=== PATIENT | male | born 1965 | race Caucasian/White ===

== ENCOUNTER 2016-07-22 08:32 | Emergency (ER) | payer BC, SELFPAY ==
--- NOTE | 2016-07-22 09:57 | REP ---
LEFT OS CALCIS, TWO VIEWS: HISTORY: Fall. There is a defect in the inferior cortex of the calcaneus consistent with a fracture. There is no dislocation. The joint spaces are normal in appearance. IMPRESSION: Fracture of the inferior calcaneus. Signed by Bahman Cruz MD 07/22/2016 09:59 A
--- NOTE | 2016-07-22 10:12 | REP ---
LEFT FOOT SERIES: FOUR VIEWS. HISTORY: Trauma. FINDINGS: Four views of the left foot show a nondisplaced fracture through the calcaneus best seen on oblique radiograph. Bohler angle is not flattened. No other fracture is seen. Overall mineralization pattern is normal. IMPRESSION: Nondisplaced fracture of the posterior and plantar aspect of the left calcaneus. Signed by Galileo Jose MD 07/22/2016 03:02 P
--- NOTE | 2016-07-22 10:23 | EDDOCDS ---
Nurse's Notes [facility] Name: Taras Carlson Age: 51 yrs Sex: Male : 1965 Arrival Date: 07/22/2016 Time: 08:32 Bed PD Private MD: Diagnosis: Nondisplaced fracture of body of left calcaneus;Low back pain Presentation: 07/22 08:56 Presenting complaint: Patient states: "Ladder kicked out and I landed on my heel" mlb1 reports falling 10 feet onto left heel last night. Adult Sepsis Screening: The patient does not have new or worsening altered mentation. Patient's respiratory rate is less than 22. Systolic blood pressure is greater than 100. Patient has a qSOFA score of 0- Negative Sepsis Screen. Suicide/Homicide risk assessment- the patient denies having any suicidal and/or homicidal ideations and does not present with any other emotional, behavioral or mental health complaints. Status: Patient is not a client service professional or dependent. Transition of care: patient was not received from another setting of care. 08:56 Acuity: KARMEN Level 4 mlb1 08:56 Method Of Arrival: Walkin/Carried/Asstd mlb1 Triage Assessment: 08:58 General: Appears in no apparent distress, Behavior is appropriate for age, cooperative. mlb1 Pain: Location: heel of left foot Pain currently is 5 out of 10 on a pain scale. At worst was 10 out of 10 on a pain scale. Aggravated by weight bearing. Pt Declines HIV testing. Historical: - Allergies: no known allergies; - Home Meds: 1. Synthroid 150 mcg Oral tab 1 tab once daily - PMHx: Hypothyroidism; - PSHx: Tonsillectomy; Hernia repair; - Social history: Smoking status: Patient states was never smoker of tobacco. No barriers to communication noted, The patient speaks fluent Kinyarwanda, Speaks appropriately for age. - Family history: Not pertinent. - : The pt / caregiver states he / she is not on anticoagulants. Home medication list is obtained from the patient. - Exposure Risk Screening:: None identified. Screenin:07 Screening information is obtained from the patient. Fall risk: No risks identified. mlb1 Assistance ADL's: requires no assistance with activities of daily living. Abuse/DV Screen: The patient / caregiver reports he/she is: not in a situation that causes fear, pain or injury. Nutritional screening: No deficits noted. Advance Directives: Currently, there is no health care proxy. home support is adequate. Assessment: 10:06 General: Appears in no apparent distress, Behavior is agitated. Pain: Location: heel of mlb1 left foot Pain currently is 5 out of 10 on a pain scale. Injury Description: Bruise sustained to arch of left foot is purple. 10:07 General: Pt refused back x-ray, reported back pain to provider none reported to this b1 commercial loan underwriter. Vital Signs: 08:58 BP 120 / 59; Pulse 60; Resp 16; Temp 98.9(TE); Pulse Ox 98% on R/A; Weight 79.38 kg mlb1 (R); Height 6 ft. 0 in. (182.88 cm) (R); Pain 5/10; 08:58 Body Mass Index 23.73 (79.38 kg, 182.88 cm) mlb1 Vitals: 08:58 Log In Time: July 22, 2016 at 08:30. mlb1 ED Course: 08:33 Patient visited by Rodney Jara. mm15 08:33 Patient moved to Waiting mm15 08:56 Patient visited by Mahesh Roque, LINDEN. mlb1 08:57 Triage Initiated mlb1 08:59 Patient visited by aMhesh Roque RN. mlb1 08:59 Patient moved to PD2 / mlb1 09:03 Mannie Guaman PA-C is [facility]. ar2 09:03 Jreamy Law MD is Attending Physician. ar2 09:08 Patient visited by Mannie Guaman PA-C. ar2 10:04 Germán Messina is Referral Physician. ar2 10:08 The patient / caregiver is instructed regarding the plan of care and ED course. mlb1 10:08 No IV's were initiated during this patient's visit. No procedures done that require mlb1 assistance. 10:16 [facility] [place] was scanned into [email or web address] and attached to record. mm15 10:23 Patient visited by Mahesh Roque, LINDEN. mlb1 Order Results: There are currently no results for this order. Outcome: 10:05 Patient left against medical advice. ar2 10:18 Discharge Assessment: Patient awake, alert and oriented x 3. No cognitive and/or mlb1 functional deficits noted. Patient verbalized understanding of disposition instructions. patient administered narcotics - no. Condition: good. Discharge instructions given to patient, Instructed on discharge instructions, follow up and referral plans. Demonstrated understanding of instructions, Pt was receptive of discharge instructions/ teaching. No special radiology studies were completed. Property sent home with patient. 10:19 The following High Risk Discharge criteria are identified: Yes, Pt leaving AMA for mlb1 refusing back x-ray, reported back pain to provider, appointment with Ortho Dr. Messina immediately after departure. The patient is leaving AMA: AMA form signed, Notification of AMA status is made to the charge nurse, the ED attending physician. 10:23 Patient left the ED. [facility] Signatures: Mahesh Roque RN RN b1 Mannie Guaman PA-C PA-C ar2 Rodney Jara mm15 Corrections: (The following items were deleted from the chart) 10:23 10:18 The following High Risk Discharge criteria are identified: None. Discharged to [facility] home ambulatory, with crutches, [facility] 10:23 10:18 Discharge instructions given to patient, Instructed on discharge instructions, b1 follow up and referral plans. Demonstrated understanding of instructions, Pt was receptive of discharge instructions/ teaching. mlb1 MTDD
--- NOTE | 2016-07-22 10:23 | EDDOCDS ---
Physician Documentation [facility] Name: Taras Carlson Age: 51 yrs Sex: Male : 1965 Arrival Date: 07/22/2016 Time: 08:32 Bed PD Private MD: Disposition: 07/22/16 10:05 Patient has left against medical advice. Impression: Nondisplaced fracture of body of left calcaneus, Low back pain. - Patients states they are going to Home/Self Care. - Condition is Unknown. - Discharge Instructions: Calcaneal Fracture Repair, Crutch Use. Medication Reconciliation, Local Pharmacy Hours form. Follow up: Germán Messina; When: go directly to office; Reason: Recheck today's complaints, Continuance of care. - Problem is new. - Symptoms are unchanged. - Notes: Your case was discussed with Dr. Messina. Use crutches, no weight bearing on left foot. Go directly to his office from the ER for further evaluation. Please understand you may also have a fracture in your spine for which you refused an xray today. Historical: - Allergies: no known allergies; - Home Meds: 1. Synthroid 150 mcg Oral tab 1 tab once daily - PMHx: Hypothyroidism; - PSHx: Tonsillectomy; Hernia repair; - Social history: Smoking status: Patient states was never smoker of tobacco. No barriers to communication noted, The patient speaks fluent Fijian, Speaks appropriately for age. - Family history: Not pertinent. - : The pt / caregiver states he / she is not on anticoagulants. Home medication list is obtained from the patient. - Exposure Risk Screening:: None identified. Vital Signs: 07/22 08:58 BP 120 / 59; Pulse 60; Resp 16; Temp 98.9(TE); Pulse Ox 98% on R/A; Weight 79.38 kg / mlb1 175 lbs (R); Height 6 ft. 0 in. (182.88 cm) (R); Pain 5/10; 08:58 Body Mass Index 23.73 (79.38 kg, 182.88 cm) mlb1 MDM: 09:16 Foot, Complete Ordered. EDMS 09:16 Calcaneus Ordered. EDMS 09:16 Spine. Lumbosacral, Complete Ordered. EDMS 09:16 NOTHING BY MOUTH+DIET ordered. EDMS 09:37 Financial registration complete. mm15 10:16 [facility] Payment Agreement was scanned into [employer] and attached to record. mm15 Signatures: Dispatcher [employer] Mahesh Davison RN RN mlb1 Mannie Guaman PA-C PA-C ar2 Rodney Jara mm15 The chart was reviewed and I authenticate all verbal orders and agree with the evaluation and treatment provided.Attachments: 10:16 [facility] Payment Agreement mm15 MTDD
--- NOTE | 2016-07-24 11:24 | EDDOCDS ---
Nurse's Notes [facility] Name: Taras Carlson Age: 51 yrs Sex: Male : 1965 Arrival Date: 07/22/2016 Time: 08:32 Bed PD Private MD: Diagnosis: Nondisplaced fracture of body of left calcaneus;Low back pain Presentation: 07/22 08:56 Presenting complaint: Patient states: "Ladder kicked out and I landed on my heel" mlb1 reports falling 10 feet onto left heel last night. Adult Sepsis Screening: The patient does not have new or worsening altered mentation. Patient's respiratory rate is less than 22. Systolic blood pressure is greater than 100. Patient has a qSOFA score of 0- Negative Sepsis Screen. Suicide/Homicide risk assessment- the patient denies having any suicidal and/or homicidal ideations and does not present with any other emotional, behavioral or mental health complaints. Status: Patient is not a fiscal services director or dependent. Transition of care: patient was not received from another setting of care. 08:56 Acuity: KARMEN Level 4 mlb1 08:56 Method Of Arrival: Walkin/Carried/Asstd mlb1 Triage Assessment: 08:58 General: Appears in no apparent distress, Behavior is appropriate for age, cooperative. mlb1 Pain: Location: heel of left foot Pain currently is 5 out of 10 on a pain scale. At worst was 10 out of 10 on a pain scale. Aggravated by weight bearing. Pt Declines HIV testing. Historical: - Allergies: no known allergies; - Home Meds: 1. Synthroid 150 mcg Oral tab 1 tab once daily - PMHx: Hypothyroidism; - PSHx: Tonsillectomy; Hernia repair; - Social history: Smoking status: Patient states was never smoker of tobacco. No barriers to communication noted, The patient speaks fluent Kyrgyz, Speaks appropriately for age. - Family history: Not pertinent. - : The pt / caregiver states he / she is not on anticoagulants. Home medication list is obtained from the patient. - Exposure Risk Screening:: None identified. Screenin:07 Screening information is obtained from the patient. Fall risk: No risks identified. mlb1 Assistance ADL's: requires no assistance with activities of daily living. Abuse/DV Screen: The patient / caregiver reports he/she is: not in a situation that causes fear, pain or injury. Nutritional screening: No deficits noted. Advance Directives: Currently, there is no health care proxy. home support is adequate. Assessment: 10:06 General: Appears in no apparent distress, Behavior is agitated. Pain: Location: heel of mlb1 left foot Pain currently is 5 out of 10 on a pain scale. Injury Description: Bruise sustained to arch of left foot is purple. 10:07 General: Pt refused back x-ray, reported back pain to provider none reported to this [facility] abstract writer. Vital Signs: 08:58 BP 120 / 59; Pulse 60; Resp 16; Temp 98.9(TE); Pulse Ox 98% on R/A; Weight 79.38 kg mlb1 (R); Height 6 ft. 0 in. (182.88 cm) (R); Pain 5/10; 08:58 Body Mass Index 23.73 (79.38 kg, 182.88 cm) mlb1 Vitals: 08:58 Log In Time: July 22, 2016 at 08:30. mlb1 ED Course: 08:33 Patient visited by Rodney Jara. mm15 08:33 Patient moved to Waiting mm15 08:56 Patient visited by Mahesh Roque, LINDEN. mlb1 08:57 Triage Initiated mlb1 08:59 Patient visited by Mahesh Roque RN. mlb1 08:59 Patient moved to PD2 / mlb1 09:03 Mannie Guaman PA-C is PHCP. ar2 09:03 Jeramy Law MD is Attending Physician. ar2 09:08 Patient visited by Mannie Guaman PA-C. ar2 10:04 Germán Messina is Referral Physician. ar2 10:08 The patient / caregiver is instructed regarding the plan of care and ED course. mlb1 10:08 No IV's were initiated during this patient's visit. No procedures done that require mlb1 assistance. 10:16 [facility] Agreement was scanned into [employer] and attached to record. mm15 10:23 Patient visited by Mahesh Roque, LINDEN. mlb1 10:34 Calcaneus Returned. EDMS 10:34 Foot, Complete Returned. EDMS 07/23 10:10 Refusal of Services was scanned into [employer] and attached to record. gb 10:10 T-Sheet-- Draft Copy was scanned into [employer] and attached to record. gb 10:10 Radiology Report was scanned into [employer] and attached to record. gb Attachments: 07/23 10:10 Refusal of Services gb Order Results: Radiology Order: Foot, Complete Test: Foot, Complete REASON FOR EXAMINATION: trauma, fall from ladder; LEFT FOOT SERIES: FOUR VIEWS.; ; HISTORY: Trauma.; ; FINDINGS: Four views of the left foot show a nondisplaced fracture through the; calcaneus best seen on oblique radiograph. Bohler angle is not flattened. No; other fracture is seen. Overall mineralization pattern is normal.; ; IMPRESSION:; ; Nondisplaced fracture of the posterior and plantar aspect of the left calcaneus.; ; ; Signed by; Galileo Jose MD 07/22/2016 03:02 P; Radiology Order: Calcaneus Test: Calcaneus REASON FOR EXAMINATION: fall from ladder; LEFT OS CALCIS, TWO VIEWS:; ; HISTORY: Fall.; ; There is a defect in the inferior cortex of the calcaneus consistent with a; fracture. There is no dislocation. The joint spaces are normal in appearance.; ; ; IMPRESSION:; ; Fracture of the inferior calcaneus.; ; ; Signed by; Bahman Cruz MD 07/22/2016 09:59 A; Outcome: 07/22 10:05 Patient left against medical advice. ar2 10:18 Discharge Assessment: Patient awake, alert and oriented x 3. No cognitive and/or mlb1 functional deficits noted. Patient verbalized understanding of disposition instructions. patient administered narcotics - no. Condition: good. Discharge instructions given to patient, Instructed on discharge instructions, follow up and referral plans. Demonstrated understanding of instructions, Pt was receptive of discharge instructions/ teaching. No special radiology studies were completed. Property sent home with patient. 10:19 The following High Risk Discharge criteria are identified: Yes, Pt leaving AMA for mlb1 refusing back x-ray, reported back pain to provider, appointment with Ortho Dr. Messina immediately after departure. The patient is leaving AMA: AMA form signed, Notification of AMA status is made to the charge nurse, the ED attending physician. 10:23 Patient left the ED. mlb1 Signatures: Dispatcher [employer] EDMI Adelaide Bynum, Reg Reg gb Mahesh Roque RN RN mlb1 Mannie Guaman PA-C PAMeena ar2 Rodney Jara mm15 Corrections: (The following items were deleted from the chart) 10:23 10:18 The following High Risk Discharge criteria are identified: None. Discharged to [facility] home ambulatory, with crutches, [facility] 10:23 10:18 Discharge instructions given to patient, Instructed on discharge instructions, [facility] follow up and referral plans. Demonstrated understanding of instructions, Pt was receptive of discharge instructions/ teaching. [facility] Chart Complete MTDD
--- NOTE | 2016-07-24 11:24 | EDDOCDS ---
Physician Documentation [facility] Name: Taras Carlson Age: 51 yrs Sex: Male : 1965 Arrival Date: 07/22/2016 Time: 08:32 Bed PD Private MD: Disposition: 07/22/16 10:05 Patient has left against medical advice. Impression: Nondisplaced fracture of body of left calcaneus, Low back pain. - Patients states they are going to Home/Self Care. - Condition is Unknown. - Discharge Instructions: Calcaneal Fracture Repair, Crutch Use. Medication Reconciliation, Local Pharmacy Hours form. Follow up: Germán Messina; When: go directly to office; Reason: Recheck today's complaints, Continuance of care. - Problem is new. - Symptoms are unchanged. - Notes: Your case was discussed with Dr. Messina. Use crutches, no weight bearing on left foot. Go directly to his office from the ER for further evaluation. Please understand you may also have a fracture in your spine for which you refused an xray today. Historical: - Allergies: no known allergies; - Home Meds: 1. Synthroid 150 mcg Oral tab 1 tab once daily - PMHx: Hypothyroidism; - PSHx: Tonsillectomy; Hernia repair; - Social history: Smoking status: Patient states was never smoker of tobacco. No barriers to communication noted, The patient speaks fluent Mongolian, Speaks appropriately for age. - Family history: Not pertinent. - : The pt / caregiver states he / she is not on anticoagulants. Home medication list is obtained from the patient. - Exposure Risk Screening:: None identified. Vital Signs: 07/22 08:58 BP 120 / 59; Pulse 60; Resp 16; Temp 98.9(TE); Pulse Ox 98% on R/A; Weight 79.38 kg / mlb1 175 lbs (R); Height 6 ft. 0 in. (182.88 cm) (R); Pain 5/10; 08:58 Body Mass Index 23.73 (79.38 kg, 182.88 cm) mlb1 MDM: 09:16 Foot, Complete Ordered. EDMS 09:16 Calcaneus Ordered. EDMS 09:16 Spine. Lumbosacral, Complete Ordered. EDMS 09:16 NOTHING BY MOUTH+DIET ordered. EDMS 09:37 Financial registration complete. mm15 10:16 [facility] Payment Agreement was scanned into [employer] and attached to record. mm15 07/23 10:10 Refusal of Services was scanned into [employer] and attached to record. gb 10:10 T-Sheet-- Draft Copy was scanned into [employer] and attached to record. gb 10:10 Radiology Report was scanned into [employer] and attached to record. gb Signatures: Dispatcher [employer] EDNY Adelaide Bynum, Reg Reg gb Mahesh Roque RN RN mlb1 Mannie Guaman PA-C PAMeena ar2 Rodney Jara mm15 The chart was reviewed and I authenticate all verbal orders and agree with the evaluation and treatment provided.Attachments: 07/22 10:16 [facility] Payment Agreement mm15 10:10 T-Sheet-- Draft Copy gb Chart Complete MTDD
--- NOTE | 2016-07-24 11:24 | EDDOCDS ---
Physician Documentation [facility] Name: Taras Carlson Age: 51 yrs Sex: Male : 1965 Arrival Date: 07/22/2016 Time: 08:32 Bed PD Private MD: Disposition: 07/22/16 10:05 Patient has left against medical advice. Impression: Nondisplaced fracture of body of left calcaneus, Low back pain. - Patients states they are going to Home/Self Care. - Condition is Unknown. - Discharge Instructions: Calcaneal Fracture Repair, Crutch Use. Medication Reconciliation, Local Pharmacy Hours form. Follow up: Germán Messina; When: go directly to office; Reason: Recheck today's complaints, Continuance of care. - Problem is new. - Symptoms are unchanged. - Notes: Your case was discussed with Dr. Messina. Use crutches, no weight bearing on left foot. Go directly to his office from the ER for further evaluation. Please understand you may also have a fracture in your spine for which you refused an xray today. Historical: - Allergies: no known allergies; - Home Meds: 1. Synthroid 150 mcg Oral tab 1 tab once daily - PMHx: Hypothyroidism; - PSHx: Tonsillectomy; Hernia repair; - Social history: Smoking status: Patient states was never smoker of tobacco. No barriers to communication noted, The patient speaks fluent Syrian, Speaks appropriately for age. - Family history: Not pertinent. - : The pt / caregiver states he / she is not on anticoagulants. Home medication list is obtained from the patient. - Exposure Risk Screening:: None identified. Vital Signs: 07/22 08:58 BP 120 / 59; Pulse 60; Resp 16; Temp 98.9(TE); Pulse Ox 98% on R/A; Weight 79.38 kg / mlb1 175 lbs (R); Height 6 ft. 0 in. (182.88 cm) (R); Pain 5/10; 08:58 Body Mass Index 23.73 (79.38 kg, 182.88 cm) mlb1 MDM: 09:16 Foot, Complete Ordered. EDMS 09:16 Calcaneus Ordered. EDMS 09:16 Spine. Lumbosacral, Complete Ordered. EDMS 09:16 NOTHING BY MOUTH+DIET ordered. EDMS 09:37 Financial registration complete. mm15 10:16 [facility] Payment Agreement was scanned into [employer] and attached to record. mm15 07/23 10:10 Refusal of Services was scanned into [employer] and attached to record. gb 10:10 T-Sheet-- Draft Copy was scanned into [employer] and attached to record. gb 10:10 Radiology Report was scanned into [employer] and attached to record. gb Signatures: Dispatcher [employer] EDVA Adelaide Bynum, Reg Reg gb Mahesh Roque RN RN mlb1 Mannie Guaman PA-C PAMeena ar2 Rodney Jara mm15 The chart was reviewed and I authenticate all verbal orders and agree with the evaluation and treatment provided.Attachments: 07/22 10:16 [facility] Payment Agreement mm15 10:10 T-Sheet-- Draft Copy gb Chart Complete MTDD
== END 2016-07-22 10:13 | disposition left against medical advice (07) ==
LOC: M ED 08:32
DX: S92.015A Nondisplaced fracture of body of left calcaneus, initial encounter for closed fracture (principal); M54.5 Low back pain; W11.XXXA Fall on and from ladder, initial encounter; Y92.098 Other place in other non-institutional residence as the place of occurrence of the external cause; Y93.89 Activity, other specified; Y99.8 Other external cause status; E03.9 Hypothyroidism, unspecified; Z79.899 Other long term (current) drug therapy

== ENCOUNTER 2016-08-03 23:52 | Emergency (ER) | payer OTHER, SELFPAY ==
--- NOTE | 2016-08-04 01:05 | EDDOCDS ---
Physician Documentation [facility] Name: Taras Carlson Age: 51 yrs Sex: Male : 1965 Arrival Date: 08/03/2016 Time: 23:52 Bed 1 Private MD: Unknown Pcp Disposition: 08/04/16 00:43 Discharged to Home/Self Care. Impression: Generalized anxiety disorder. - Condition is Stable. - Discharge Instructions: Panic Attacks, Generalized Anxiety Disorder. - Medication Reconciliation, Local Pharmacy Hours form. - Follow up: Referral List; When: Call to arrange an appointment; Reason: Continuance of care. - Problem is an acute exacerbation. - Symptoms have improved. Historical: - Allergies: No known drug Allergies; - Home Meds: 1. Synthroid 150 mcg Oral tab 1 tab once daily - PMHx: Hypothyroidism; - PSHx: Tonsillectomy; Hernia repair; - Social history: Smoking status: Patient states was never smoker of tobacco. Patient uses alcohol street drugs, No barriers to communication noted, The patient speaks fluent [place], Speaks appropriately for age. - Family history: No immediate family members are acutely ill. - : The pt / caregiver states he / she is not on anticoagulants. Home medication list is obtained from the patient. - Exposure Risk Screening:: None identified. Vital Signs: 08/04 00:02 BP 140 / 88; Pulse 64; Resp 20; Pulse Ox 100% on R/A; Weight 83.46 kg / 184 lbs (M); nn1 Height 6 ft. 0 in. (182.88 cm); Pain 0/10; 00:02 Body Mass Index 24.95 (83.46 kg, 182.88 cm) nn1 Signatures: Chava Valencia DO DO mm11 Tato Garzon,RN RN nn1 PAZD
--- NOTE | 2016-08-04 01:05 | EDDOCDS ---
Nurse's Notes [facility] Name: Taras Carlson Age: 51 yrs Sex: Male : 1965 Arrival Date: 08/03/2016 Time: 23:52 Bed 1 Private MD: Unknown Pcp Diagnosis: Generalized anxiety disorder Presentation: 08/03 23:55 Presenting complaint: EMS states: mother called EMS due to patient having trouble nn1 breathing, reported possible intoxication. Upon PD arrival patient was face down, unresponsive. Patient alert and oriented at this time. Mental Health Triage Level: Level 2: The patient was brought to the ED for evaluation because of a legal pickup order. Status: Patient is not a fitness services manager or dependent. Transition of care: patient was not received from another setting of care. 23:55 Acuity: KARMEN Level 3 nn1 23:55 Method Of Arrival: Ambulance nn1 23:55 Adult Sepsis Screening: The patient does not have new or worsening altered mentation. nn1 Patient's respiratory rate is less than 22. Systolic blood pressure is greater than 100. Patient has a qSOFA score of 0- Negative Sepsis Screen. 23:57 Suicide/Homicide risk assessment- the patient denies having any suicidal and/or nn1 homicidal ideations and does not present with any other emotional, behavioral or mental health complaints. Triage Assessment: 23:56 General: Appears distressed, Behavior is agitated, anxious. Pain: Denies pain. HIV nn1 screening NA for this visit Offered previously. The patient is triaged at the bedside. See Assessment in Nurses Notes section of ED record. Neurological: Level of Consciousness is awake, alert, obeys commands. Respiratory: Airway is patent Respiratory effort is even, unlabored, Respiratory pattern is regular, symmetrical. Derm: Skin is pink, warm & dry. Historical: - Allergies: No known drug Allergies; - Home Meds: 1. Synthroid 150 mcg Oral tab 1 tab once daily - PMHx: Hypothyroidism; - PSHx: Tonsillectomy; Hernia repair; - Social history: Smoking status: Patient states was never smoker of tobacco. Patient uses alcohol street drugs, No barriers to communication noted, The patient speaks fluent Syriac, Speaks appropriately for age. - Family history: No immediate family members are acutely ill. - : The pt / caregiver states he / she is not on anticoagulants. Home medication list is obtained from the patient. - Exposure Risk Screening:: None identified. Screenin 00:47 Screening information is obtained from the patient. Fall risk: No risks identified. nn1 Assistance ADL's: requires no assistance with activities of daily living. Abuse/DV Screen: The patient / caregiver reports he/she is: not in a situation that causes fear, pain or injury. Nutritional screening: No deficits noted. Advance Directives: Currently, there is no health care proxy. home support is adequate. Assessment: 00:04 General: Appears in no apparent distress, Behavior is cooperative, Patient cooperative nn1 at this time. Patient released from handcuffs.. Pain: Denies pain. Neurological: Level of Consciousness is awake, alert, obeys commands, Oriented to person, place, time. Respiratory: Airway is patent Respiratory effort is even, unlabored, Respiratory pattern is regular, symmetrical. GI: Abdomen is non- distended Derm: Skin is pink, warm & dry. 00:20 General: Patient became very anxious when asked to change out of personal clothes. nn1 Patient states "everyone is laughing at me, i feel humiliated". Patient privacy maintained. Provider aware of patient anxieties at this time. Patient in no respiratory distress, reports he was having anxiety attack when respiratory difficulties presented. . 00:47 Reassessment: Patient appears in no apparent distress at this time. nn1 Vital Signs: 00:02 BP 140 / 88; Pulse 64; Resp 20; Pulse Ox 100% on R/A; Weight 83.46 kg (M); Height 6 ft. nn1 0 in. (182.88 cm); Pain 0/10; 00:02 Body Mass Index 24.95 (83.46 kg, 182.88 cm) nn1 Vitals: 0220 23:58 Log In Time N/A - ambulance arrival. nn1 ED Course: 23:53 Patient visited by Nehal Rizzo PCA. tmm1 23:53 Unknown Pcp is Private Physician. tmm1 23:53 Luly Banegas,LINDEN is Primary Nurse. tmm1 23:53 Patient moved to Waiting tmm1 23:53 Patient moved to 1 tmm1 23:56 Triage Initiated nn1 08/04 00:34 Chava Valencia DO is Attending Physician. mm11 00:34 Patient visited by Chava Valencia DO. mm11 00:42 Patient visited by Chava Valencia DO. mm11 00:43 Referral List is Referral Physician. mm11 00:46 Primary Nurse role handed off by Luly Banegas,LINDEN sls1 00:48 The patient / caregiver is instructed regarding the plan of care and ED course. nn1 00:48 No IV's were initiated during this patient's visit. No procedures done that require nn1 assistance. Order Results: There are currently no results for this order. Outcome: 00:43 Discharge ordered by Provider. mm11 00:48 Discharge Assessment: Patient awake, alert and oriented x 3. No cognitive and/or nn1 functional deficits noted. Patient verbalized understanding of disposition instructions. patient administered narcotics - no. The following High Risk Discharge criteria are identified: None. Discharged to home ambulatory. Condition: unchanged. No special radiology studies were completed. Property :Personal belongings accompany Pt. 01:04 Patient left the ED. nn1 Signatures: Chava Valencia DO DO mm11 Judith Hines RN RN sls1 Nehal Rizzo, NAKITA ROLLER OPERATOR tmm1 Tato Garzon,RN RN nn1 LALA
--- NOTE | 2016-08-06 02:05 | EDDOCDS ---
Nurse's Notes [facility] Name: Taras Carlson Age: 51 yrs Sex: Male : 1965 Arrival Date: 08/03/2016 Time: 23:52 Bed 1 Private MD: Unknown Pcp Diagnosis: Generalized anxiety disorder Presentation: 08/03 23:55 Presenting complaint: EMS states: mother called EMS due to patient having trouble nn1 breathing, reported possible intoxication. Upon PD arrival patient was face down, unresponsive. Patient alert and oriented at this time. Mental Health Triage Level: Level 2: The patient was brought to the ED for evaluation because of a legal pickup order. Status: Patient is not a clinical services manager or dependent. Transition of care: patient was not received from another setting of care. 23:55 Acuity: KARMEN Level 3 nn1 23:55 Method Of Arrival: Ambulance nn1 23:55 Adult Sepsis Screening: The patient does not have new or worsening altered mentation. nn1 Patient's respiratory rate is less than 22. Systolic blood pressure is greater than 100. Patient has a qSOFA score of 0- Negative Sepsis Screen. 23:57 Suicide/Homicide risk assessment- the patient denies having any suicidal and/or nn1 homicidal ideations and does not present with any other emotional, behavioral or mental health complaints. Triage Assessment: 23:56 General: Appears distressed, Behavior is agitated, anxious. Pain: Denies pain. HIV nn1 screening NA for this visit Offered previously. The patient is triaged at the bedside. See Assessment in Nurses Notes section of ED record. Neurological: Level of Consciousness is awake, alert, obeys commands. Respiratory: Airway is patent Respiratory effort is even, unlabored, Respiratory pattern is regular, symmetrical. Derm: Skin is pink, warm & dry. Historical: - Allergies: No known drug Allergies; - Home Meds: 1. Synthroid 150 mcg Oral tab 1 tab once daily - PMHx: Hypothyroidism; - PSHx: Tonsillectomy; Hernia repair; - Social history: Smoking status: Patient states was never smoker of tobacco. Patient uses alcohol street drugs, No barriers to communication noted, The patient speaks fluent Serbian, Speaks appropriately for age. - Family history: No immediate family members are acutely ill. - : The pt / caregiver states he / she is not on anticoagulants. Home medication list is obtained from the patient. - Exposure Risk Screening:: None identified. Screenin 00:47 Screening information is obtained from the patient. Fall risk: No risks identified. nn1 Assistance ADL's: requires no assistance with activities of daily living. Abuse/DV Screen: The patient / caregiver reports he/she is: not in a situation that causes fear, pain or injury. Nutritional screening: No deficits noted. Advance Directives: Currently, there is no health care proxy. home support is adequate. Assessment: 00:04 General: Appears in no apparent distress, Behavior is cooperative, Patient cooperative nn1 at this time. Patient released from handcuffs.. Pain: Denies pain. Neurological: Level of Consciousness is awake, alert, obeys commands, Oriented to person, place, time. Respiratory: Airway is patent Respiratory effort is even, unlabored, Respiratory pattern is regular, symmetrical. GI: Abdomen is non- distended Derm: Skin is pink, warm & dry. 00:20 General: Patient became very anxious when asked to change out of personal clothes. nn1 Patient states "everyone is laughing at me, i feel humiliated". Patient privacy maintained. Provider aware of patient anxieties at this time. Patient in no respiratory distress, reports he was having anxiety attack when respiratory difficulties presented. . 00:47 Reassessment: Patient appears in no apparent distress at this time. nn1 Vital Signs: 00:02 BP 140 / 88; Pulse 64; Resp 20; Pulse Ox 100% on R/A; Weight 83.46 kg (M); Height 6 ft. nn1 0 in. (182.88 cm); Pain 0/10; 00:02 Body Mass Index 24.95 (83.46 kg, 182.88 cm) nn1 Vitals: 0220 23:58 Log In Time N/A - ambulance arrival. nn1 ED Course: 23:53 Patient visited by Nehal Rizzo PCA. tmm1 23:53 Unknown Pcp is Private Physician. tmm1 23:53 Luly Banegas,LINDEN is Primary Nurse. tmm1 23:53 Patient moved to Waiting tmm1 23:53 Patient moved to 1 tmm1 23:56 Triage Initiated nn1 08/04 00:34 Chava Valencia DO is Attending Physician. mm11 00:34 Patient visited by Chava Valencia DO. mm11 00:42 Patient visited by Chava Valencia DO. mm11 00:43 Referral List is Referral Physician. mm11 00:46 Primary Nurse role handed off by Luly Banegas,RN sls1 00:48 The patient / caregiver is instructed regarding the plan of care and ED course. nn1 00:48 No IV's were initiated during this patient's visit. No procedures done that require nn1 assistance. 09:29 T-Sheet-- Draft Copy was scanned into [employer] and attached to record. gb 09:29 PCR was scanned into [employer] and attached to record. gb Order Results: There are currently no results for this order. Outcome: 00:43 Discharge ordered by Provider. mm11 00:48 Discharge Assessment: Patient awake, alert and oriented x 3. No cognitive and/or nn1 functional deficits noted. Patient verbalized understanding of disposition instructions. patient administered narcotics - no. The following High Risk Discharge criteria are identified: None. Discharged to home ambulatory. Condition: unchanged. No special radiology studies were completed. Property :Personal belongings accompany Pt. 01:04 Patient left the ED. nn1 Signatures: Adelaide Bynum, Reg Reg gb Chava Valencia DO DO mm11 Judith Hines RN RN sls1 Nehal Rizzo, NAKITA GROUP PROGRAM MANAGER tmm1 Tato Garzon,RN RN nn1 Chart Complete MTDD
--- NOTE | 2016-08-06 02:05 | EDDOCDS ---
Physician Documentation [facility] Name: Taras Carlson Age: 51 yrs Sex: Male : 1965 Arrival Date: 08/03/2016 Time: 23:52 Bed 1 Private MD: Unknown Pcp Disposition: 08/04/16 00:43 Discharged to Home/Self Care. Impression: Generalized anxiety disorder. - Condition is Stable. - Discharge Instructions: Panic Attacks, Generalized Anxiety Disorder. - Medication Reconciliation, Local Pharmacy Hours form. - Follow up: Referral List; When: Call to arrange an appointment; Reason: Continuance of care. - Problem is an acute exacerbation. - Symptoms have improved. Historical: - Allergies: No known drug Allergies; - Home Meds: 1. Synthroid 150 mcg Oral tab 1 tab once daily - PMHx: Hypothyroidism; - PSHx: Tonsillectomy; Hernia repair; - Social history: Smoking status: Patient states was never smoker of tobacco. Patient uses alcohol street drugs, No barriers to communication noted, The patient speaks fluent Polish, Speaks appropriately for age. - Family history: No immediate family members are acutely ill. - : The pt / caregiver states he / she is not on anticoagulants. Home medication list is obtained from the patient. - Exposure Risk Screening:: None identified. Vital Signs: 08/04 00:02 BP 140 / 88; Pulse 64; Resp 20; Pulse Ox 100% on R/A; Weight 83.46 kg / 184 lbs (M); nn1 Height 6 ft. 0 in. (182.88 cm); Pain 0/10; 00:02 Body Mass Index 24.95 (83.46 kg, 182.88 cm) nn1 MDM: 01:56 Financial registration complete. [facility] 09:29 T-Sheet-- Draft Copy was scanned into [employer] and attached to record. 09:29 PCR was scanned into [employer] and attached to record. Signatures: Adelaide Bynum, Reg Reg Chava Kate DO DO mm11 Saundra Rodríguez [facility] Tato Garzon,RN RN nn1 The chart was reviewed and I authenticate all verbal orders and agree with the evaluation and treatment provided.Attachments: 09:29 T-Sheet-- Draft Copy Chart Complete MTDD
--- NOTE | 2016-08-06 02:05 | EDDOCDS ---
Physician Documentation [facility] Name: Taras Carlson Age: 51 yrs Sex: Male : 1965 Arrival Date: 08/03/2016 Time: 23:52 Bed 1 Private MD: Unknown Pcp Disposition: 08/04/16 00:43 Discharged to Home/Self Care. Impression: Generalized anxiety disorder. - Condition is Stable. - Discharge Instructions: Panic Attacks, Generalized Anxiety Disorder. - Medication Reconciliation, Local Pharmacy Hours form. - Follow up: Referral List; When: Call to arrange an appointment; Reason: Continuance of care. - Problem is an acute exacerbation. - Symptoms have improved. Historical: - Allergies: No known drug Allergies; - Home Meds: 1. Synthroid 150 mcg Oral tab 1 tab once daily - PMHx: Hypothyroidism; - PSHx: Tonsillectomy; Hernia repair; - Social history: Smoking status: Patient states was never smoker of tobacco. Patient uses alcohol street drugs, No barriers to communication noted, The patient speaks fluent Samoan, Speaks appropriately for age. - Family history: No immediate family members are acutely ill. - : The pt / caregiver states he / she is not on anticoagulants. Home medication list is obtained from the patient. - Exposure Risk Screening:: None identified. Vital Signs: 08/04 00:02 BP 140 / 88; Pulse 64; Resp 20; Pulse Ox 100% on R/A; Weight 83.46 kg / 184 lbs (M); nn1 Height 6 ft. 0 in. (182.88 cm); Pain 0/10; 00:02 Body Mass Index 24.95 (83.46 kg, 182.88 cm) nn1 MDM: 01:56 Financial registration complete. [facility] 09:29 T-Sheet-- Draft Copy was scanned into [employer] and attached to record. 09:29 PCR was scanned into [employer] and attached to record. Signatures: Adelaide Bynum, Reg Reg Chava Kate DO DO mm11 Saundra Rodríguez [facility] Tato Garzon,RN RN nn1 The chart was reviewed and I authenticate all verbal orders and agree with the evaluation and treatment provided.Attachments: 09:29 T-Sheet-- Draft Copy Chart Complete MTDD
== END 2016-08-04 01:04 | disposition home or self-care (01) ==
LOC: M ED 23:52
DX: F41.9 Anxiety disorder, unspecified (principal); E03.9 Hypothyroidism, unspecified; Z79.899 Other long term (current) drug therapy

== ENCOUNTER 2020-01-03 01:39 | Emergency (ER) | payer BC, MEDICAID, OTHER, SELFPAY ==
[~2020-01-03] VITALS: Ht 182.9 cm; Wt 83.7 kg
[2020-01-03] MEDS ORDERED: LEVO175T2 (01:48)
[2020-01-03] MEDS ORDERED: ESTR1DIS2 (01:48)
[2020-01-03 02:12] LABS: MEAN CORPUSCULAR HEMOGLOBIN 30.4 pg (27.0-33.0); MEAN CORPUSCULAR HGB CONC 33.3 g/dl (32.0-36.5); MEAN CORPUSCULAR VOLUME 91.1 fl (80.0-96.0); PLATELET COUNT, AUTOMATED 258 10^3/uL (150-450); RED BLOOD COUNT 4.61 10^6/uL (4.30-6.10); WHITE BLOOD COUNT 6.3 10^3/uL (4.0-10.0)
[2020-01-03 02:34] LABS: AMPHETAMINES LEVEL URINE NEGATIVE (NEGATIVE); BARBITURATES URINE NEGATIVE (NEGATIVE); BENZODIAZEPINES URINE NEGATIVE (NEGATIVE); CANNABINOIDS URINE NEGATIVE (NEGATIVE); COCAINE METABOLITE URINE NEGATIVE (NEGATIVE); METHADONE URINE NEGATIVE (NEGATIVE); OPIATES URINE NEGATIVE (NEGATIVE); PHENCYCLIDINE URINE NEGATIVE (NEGATIVE)
[2020-01-03 02:55] LABS: ACETAMINOPHEN LEVEL < 2.0 UG/ML (10.0-30.0); ALBUMIN 3.8 GM/DL (3.2-5.2); ALT/SGPT 14 U/L (12-78); BILIRUBIN,DIRECT 0.1 MG/DL (0.0-0.2); BILIRUBIN,TOTAL 0.4 MG/DL (0.2-1.0); BLOOD UREA NITROGEN 16 MG/DL (7-18); CALCIUM LEVEL 8.8 MG/DL (8.5-10.1); CARBON DIOXIDE LEVEL 27 MEQ/L (21-32); CHLORIDE LEVEL 110 MEQ/L (98-107); CREATININE FOR GFR 1.02 MG/DL (0.70-1.30); ETHYL ALCOHOL (ETHANOL) 0.065 % (0.000-0.010); GLOMERULAR FILTRATION RATE > 60.0 (>56); GLUCOSE, FASTING 88 MG/DL (70-100); POTASSIUM SERUM 3.8 MEQ/L (3.5-5.1); SALICYLATE LEVEL 2.7 MG/DL (5.0-30.0); SODIUM LEVEL 143 MEQ/L (136-145); THYROID STIMULATING HORMONE 0.015 uIU/ML (0.358-3.740); TOTAL PROTEIN 7.5 GM/DL (6.4-8.2)
[2020-01-03] MEDS ORDERED: KETOROLAC 60MG 2ML VIAL IM ONE (03:30)
[2020-01-03 03:35] VITALS: BP 137/83
[2020-01-03 03:42] LABS: FREE T4 1.78 NG/DL (0.76-1.46)
== END 2020-01-03 03:38 | disposition home or self-care (01) ==
LOC: M ED 01:39
DX: F10.229 Alcohol dependence with intoxication, unspecified (principal); E03.9 Hypothyroidism, unspecified; Y90.0 Blood alcohol level of less than 20 mg/100 ml; F41.9 Anxiety disorder, unspecified; Z79.899 Other long term (current) drug therapy
CPT/HCPCS: 36415; 80048; 80076; 80307; 84439; 84443; 85027; 96372; 99283; G0480; J1885

== ENCOUNTER → 2020-08-15 | Outpatient (CLI) | payer MEDICARE, OTHER ==
[~2020-08-15] MED LIST: ESTR1DIS2 EXT; LEVO175T2 PO
== END ==
LOC: M LABSMTC 11:45
PROVIDERS: ATTEND Anesthesiology
DX: Z01.812 Encounter for preprocedural laboratory examination (principal); Z20.822 Contact with and (suspected) exposure to COVID-19

== ENCOUNTER → 2022-04-03 | Outpatient (CLI) | payer OTHER ==
[~2022-04-03] MED LIST changes: +SPIR100T3
[2022-04-03 09:55] LABS: ALBUMIN 3.8 GM/DL (3.2-5.2); ALT/SGPT 14 U/L (12-78); BILIRUBIN,TOTAL 0.5 MG/DL (0.2-1.0); BLOOD UREA NITROGEN 20 MG/DL (7-18); CALCIUM LEVEL 9.2 MG/DL (8.5-10.1); CARBON DIOXIDE LEVEL 28 MEQ/L (21-32); CHLORIDE LEVEL 103 MEQ/L (98-107); CHOLESTEROL LEVEL 206 MG/DL (<200); CHOLESTEROL RISK RATIO 3.814 (<5); CREATININE FOR GFR 1.01 MG/DL (0.55-1.30); FREE T4 1.41 NG/DL (0.76-1.46); GLOMERULAR FILTRATION RATE > 60.0 (>51); GLUCOSE, FASTING 104 MG/DL (70-100); HDL CHOLESTEROL 54 MG/DL (>40); LDL CHOLESTEROL 101 MG/DL (<100); NON-HDL-C 152 MG/DL; POTASSIUM SERUM 4.5 MEQ/L (3.5-5.1); SODIUM LEVEL 137 MEQ/L (136-145); THYROID STIMULATING HORMONE 0.206 uIU/ML (0.358-3.740); TOTAL PROTEIN 7.2 GM/DL (6.4-8.2); TRIGLYCERIDES LEVEL 253 MG/DL (<150)
[2022-04-03 10:23] LABS: ESTRADIOL 116.8 PG/ML
== END ==
LOC: M LAB 08:40
PROVIDERS: ATTEND Internal Medicine Endocrinology, Diabetes & Metabolism
DX: E03.9 Hypothyroidism, unspecified (principal); Z78.9 Other specified health status